=== PATIENT | male | born 1975 | race Caucasian/White ===

== ENCOUNTER 2017-12-20 14:38 | Emergency (ER) | payer OTHER ==
[~2017-12-20] VITALS: Ht 175.3 cm; Wt 81.1 kg
[2017-12-20 14:41] VITALS: BP 156/90
[2017-12-20] MEDS ORDERED: mupirocin 2% ointment 22GM TP STA (14:47)
[2017-12-20] MEDS ORDERED: CLAR500T PO (14:52)
== END 2017-12-20 15:03 | disposition home or self-care (01) ==
LOC: ER 14:38
DX: L02.411 Cutaneous abscess of right axilla (principal); Z88.1 Allergy status to other antibiotic agents; Z88.0 Allergy status to penicillin; Z88.2 Allergy status to sulfonamides; Z79.899 Other long term (current) drug therapy
CPT/HCPCS: 99283

== ENCOUNTER 2019-06-13 12:05 | Emergency (ER) | payer OTHER ==
[~2019-06-13] VITALS: Ht 175.3 cm; Wt 100.0 kg
[2019-06-13 12:53] VITALS: BP 120/80
== END 2019-06-13 13:33 | disposition home or self-care (01) ==
LOC: ER 12:05
DX: S61.233A Puncture wound without foreign body of left middle finger without damage to nail, initial encounter (principal); Z88.1 Allergy status to other antibiotic agents; Z88.0 Allergy status to penicillin; Z88.2 Allergy status to sulfonamides; W26.8XXA Contact with other sharp object(s), not elsewhere classified, initial encounter; Y93.89 Activity, other specified; Y92.89 Other specified places as the place of occurrence of the external cause; Y99.8 Other external cause status
CPT/HCPCS: 99283